=== PATIENT | male | born 1995 | race Caucasian/White ===

== ENCOUNTER 2021-06-10 08:38 | Emergency (ER) | payer OTHER ==
[~2021-06-10] VITALS: Ht 177.8 cm; Wt 74.8 kg
[2021-06-10] MEDS ORDERED: AMPDEX10CR PO (08:45)
[2021-06-10] MEDS ORDERED: Norco 5-325 Ta1 EACH PO (09:42)
== END 2021-06-10 12:03 | disposition home or self-care (01) ==
LOC: ER 08:38
DX: S43.101A Unspecified dislocation of right acromioclavicular joint, initial encounter (principal); X58.XXXA Exposure to other specified factors, initial encounter
CPT/HCPCS: 73000; 73030; 99283-25